=== PATIENT | male | born 1950 | race Caucasian/White ===

== ENCOUNTER 2021-06-20 10:44 | Outpatient (CLI) | payer MEDICARE, MEDICAID, SELFPAY | END 2021-06-20 10:45 | disposition home or self-care (01) | LOC: ANHAUDIO 10:46 | PROVIDERS: PCP Internal Medicine; Visit Provider Nurse Practitioner Family | DX: H91.90 Unspecified hearing loss, unspecified ear (principal) | CPT/HCPCS: 92557; 92567 ==

== ENCOUNTER 2022-03-14 12:22 | Outpatient (CLI) | payer MEDICARE, MEDICAID, SELFPAY | END 2022-03-14 12:23 | disposition home or self-care (01) | LOC: ANHAUDIO 12:23 | PROVIDERS: PCP Internal Medicine; Visit Provider Otolaryngology | DX: H90.3 Sensorineural hearing loss, bilateral (principal) | CPT/HCPCS: 92557; 92567 ==